=== PATIENT | female | born 1955 | race Caucasian/White ===

== ENCOUNTER 2018-04-03 22:41 | Inpatient (IN) | payer MEDICARE, OTHER ==
[~2018-04-03] VITALS: Ht 154.9 cm; Wt 72.3 kg
[2018-04-03 22:47] VITALS: Ht 154.9 cm; Wt 72.3 kg
[2018-04-03] MEDS ORDERED: JANUVIA100 M1 PO (22:59)
[2018-04-03] MEDS ORDERED: COU2 PO (22:59)
[2018-04-03] MEDS ORDERED: LEVOTHYROXINE0.05 M2 PO (23:00)
[2018-04-03] MEDS ORDERED: COZAAR25 M1 PO (23:00)
[2018-04-03] MEDS ORDERED: ATORVASTATIN CA20 M1 PO (23:00)
[2018-04-03] MEDS ORDERED: INVOKANA300 MG PO (23:00)
[2018-04-03] MEDS ORDERED: ASPIR 8181 MG PO (23:01)
[2018-04-03] MEDS ORDERED: METFORMIN HCL1000 MG PO (23:01)
[2018-04-03] MEDS ORDERED: FUROSEMIDE40 MG PO (23:01)
[2018-04-03] MEDS ORDERED: DIGOXIN0.125 M1 PO (23:02)
[2018-04-03 23:31] LABS: BASOPHIL % 0.3 % (0-2); PLATELET COUNT 265 x10^3mcL (130-400)
[2018-04-03 23:48] LABS: CALCIUM 8.6 mg/dL (8.5-10.1); CARBON DIOXIDE 27.7 mmol/L (21-32); CHLORIDE SERUM 101 mmol/L (98-107); CREATININE SERUM 0.8 mg/dL (0.6-1.0); GFR1 > 60 mL/min; GLUCOSE SERUM 262 mg/dL (74-106); POTASSIUM SERUM 3.9 mmol/L (3.5-5.1); SODIUM SERUM 137 mmol/L (136-145)
[2018-04-03 23:49] LABS: RED CELL DISTRIBUTION WIDTH 15.5 % (11.5-14.5)
[2018-04-03 23:52] LABS: ALBUMIN 3.7 g/dL (3.4-5.0); ALKALINE PHOSPHATASE 69 U/L (46-116); ALT/SGPT 29 U/L (14-59); AST/SGOT 32 U/L (15-37); BILIRUBIN TOTAL 0.4 mg/dL (0.20-1.00); CHOLESTEROL 147 mg/dL (<200); CHOLESTEROL/HDL RATIO 2.9; HDL CHOLESTEROL 51 mg/dL (40-60); LIPASE 172 IU/L (73-393); TOTAL PROTEIN, SERUM 7.1 g/dL (6.4-8.2); TRIGLYCERIDES 184 mg/dL (<150)
[2018-04-04 00:16] LABS: microscopic required? NO
[2018-04-04 00:23] LABS: FREE T4 1.39 ng/dL (0.76-1.46); FREE THYROXINE INDEX 2.8 ug/dL (1.4-4.5)
[2018-04-04 00:30] LABS: urine erythrocyte NEGATIVE (NEGATIVE)
[2018-04-04 00:38] LABS: T3 TOTAL 0.98 ng/mL
[2018-04-04 00:43] LABS: MAGNESIUM 2.3 mg/dL (1.8-2.4)
[2018-04-04 01:19] VITALS: BP 127/56
[2018-04-04 05:34] VITALS: BP 112/44
[2018-04-04 07:35] LABS: CALCIUM 8.3 mg/dL (8.5-10.1); CARBON DIOXIDE 27.3 mmol/L (21-32); CHLORIDE SERUM 101 mmol/L (98-107); CREATININE SERUM 0.6 mg/dL (0.6-1.0); GFR1 > 60 mL/min; GLUCOSE SERUM 251 mg/dL (74-106); MAGNESIUM 2.6 mg/dL (1.8-2.4); PHOSPHOROUS 3.7 mg/dL (2.5-4.9); POTASSIUM SERUM 3.5 mmol/L (3.5-5.1); SODIUM SERUM 136 mmol/L (136-145)
[2018-04-04 07:52] LABS: PLATELET COUNT 240 x10^3mcL (130-400)
[2018-04-04 08:15] LABS: BASOPHIL % 0 % (0-2); RED CELL DISTRIBUTION WIDTH 15.1 % (11.5-14.5)
[2018-04-04 09:30] VITALS: BP 130/60
[2018-04-04 13:35] VITALS: BP 101/45
[2018-04-04 16:40] VITALS: BP 120/53
[2018-04-04 20:38] VITALS: BP 103/43
[2018-04-05 05:38] VITALS: BP 104/53
[2018-04-05 05:48] LABS: BASOPHIL % 0.1 % (0-2); PLATELET COUNT 238 x10^3mcL (130-400)
[2018-04-05 05:51] LABS: RED CELL DISTRIBUTION WIDTH 15.3 % (11.5-14.5)
[2018-04-05 05:59] LABS: CALCIUM 8.4 mg/dL (8.5-10.1); CARBON DIOXIDE 26.1 mmol/L (21-32); CHLORIDE SERUM 103 mmol/L (98-107); CREATININE SERUM 0.6 mg/dL (0.6-1.0); GFR1 > 60 mL/min; GLUCOSE SERUM 283 mg/dL (74-106); MAGNESIUM 2.5 mg/dL (1.8-2.4); PHOSPHOROUS 4.4 mg/dL (2.5-4.9); POTASSIUM SERUM 4.3 mmol/L (3.5-5.1); SODIUM SERUM 140 mmol/L (136-145)
[2018-04-05 09:00] VITALS: BP 114/73
[2018-04-05] MEDS ORDERED: PROVENTIL0.09 MG/A1 INH (11:33)
[2018-04-05] MEDS ORDERED: ADV100/50 INH (11:36)
[2018-04-05] MEDS ORDERED: MONTELUKAST SOD10 M1 PO (11:39)
[2018-04-05] MEDS ORDERED: METOPROLOL SUCC25 M2 PO (11:49)
[2018-04-05] MEDS ORDERED: PREDNISONE20 MG PO (11:54)
[2018-04-05 12:54] VITALS: BP 107/40
[2018-04-05] MEDS ORDERED: CARVEDILOL12.5 M1 PO (13:10)
[2018-04-05 13:23] VITALS: BP 114/53
[2018-04-05 14:28] VITALS: BP 119/59
== END 2018-04-05 16:00 | disposition home or self-care (01) | DRG 189 ==
LOC: ED 22:41 → EDBD 22:41 → DU 04-04 00:04
PROVIDERS: Family Medicine; Specialist
DX: J96.00 Acute respiratory failure, unspecified whether with hypoxia or hypercapnia (principal); N17.0 Acute kidney failure with tubular necrosis; I50.43 Acute on chronic combined systolic (congestive) and diastolic (congestive) heart failure; J45.901 Unspecified asthma with (acute) exacerbation; E11.65 Type 2 diabetes mellitus with hyperglycemia; I11.0 Hypertensive heart disease with heart failure; I48.2 Chronic atrial fibrillation; E83.41 Hypermagnesemia; E03.9 Hypothyroidism, unspecified; E78.1 Pure hyperglyceridemia; I25.10 Atherosclerotic heart disease of native coronary artery without angina pectoris; Z79.82 Long term (current) use of aspirin; Z68.25 Body mass index [BMI] 25.0-25.9, adult; Z95.1 Presence of aortocoronary bypass graft; Z79.01 Long term (current) use of anticoagulants; Z79.84 Long term (current) use of oral hypoglycemic drugs; Z95.810 Presence of automatic (implantable) cardiac defibrillator
CPT/HCPCS: 36600; 82962; 83880; 84439; 87804; 94150; J1815; J2543; J2920; J2930; J3475; J7030; J7613; J7620; J7626; J7633; J7644; Q0092

== ENCOUNTER 2018-07-12 22:17 | Emergency (ER) | payer MEDICARE, OTHER ==
[~2018-07-12] VITALS: Ht 162.6 cm; Wt 77.1 kg
[~2018-07-12 22:17] MED LIST: ADV100/50 INH; ASPIR 8181 MG PO; ATORVASTATIN CA20 M1 PO; CARVEDILOL12.5 M1 PO; COU2 PO; COZAAR25 M1 PO; DIGOXIN0.125 M1 PO; FUROSEMIDE40 MG PO; INVOKANA300 MG PO; JANUVIA100 M1 PO; LEVOTHYROXINE0.05 M2 PO; METFORMIN HCL1000 MG PO; METOPROLOL SUCC25 M2 PO; MONTELUKAST SOD10 M1 PO; PREDNISONE20 MG PO; PROVENTIL0.09 MG/A1 INH
[2018-07-12 22:20] VITALS: Ht 162.6 cm; Wt 77.1 kg
[2018-07-12 23:51] VITALS: BP 145/60
== END 2018-07-12 23:51 | disposition home or self-care (01) ==
LOC: ED 22:17
DX: M54.5 Low back pain (principal); M17.11 Unilateral primary osteoarthritis, right knee; R05 Cough

== ENCOUNTER 2018-07-16 19:04 | Inpatient (IN) | payer MEDICARE, OTHER ==
[~2018-07-16] VITALS: Ht 152.4 cm; Wt 75.7 kg
[2018-07-16 19:08] VITALS: Ht 152.4 cm; Wt 75.7 kg
[2018-07-16 20:50] LABS: PLATELET COUNT 274 x10^3mcL (130-400)
[2018-07-16 20:55] LABS: RED CELL DISTRIBUTION WIDTH 14.7 % (11.5-14.5)
[2018-07-16 21:03] LABS: CALCIUM 8.8 mg/dL (8.5-10.1); CARBON DIOXIDE 28.7 mmol/L (21-32); CHLORIDE SERUM 97 mmol/L (98-107); CREATININE SERUM 0.7 mg/dL (0.6-1.0); GFR1 > 60 mL/min; GLUCOSE SERUM 191 mg/dL (74-106); POTASSIUM SERUM 3.7 mmol/L (3.5-5.1); SODIUM SERUM 133 mmol/L (136-145)
[2018-07-16 21:15] LABS: ALBUMIN 3.8 g/dL (3.4-5.0); ALKALINE PHOSPHATASE 90 U/L (46-116); ALT/SGPT 25 U/L (14-59); AMYLASE 30 U/L (25-115); AST/SGOT 16 U/L (15-37); BILIRUBIN TOTAL 0.7 mg/dL (0.20-1.00); HDL CHOLESTEROL 55 mg/dL (40-60); LIPASE 102 IU/L (73-393); T4(THYROXINE) 11.8 ug/dL (4.7-13.3)
[2018-07-16 21:16] LABS: CHOLESTEROL 133 mg/dL (<200); TOTAL PROTEIN, SERUM 8.3 g/dL (6.4-8.2)
[2018-07-16 21:17] LABS: BAND NEUTROPHIL 4 % (0-10); BASOPHIL 1 % (0-2); METAMYELOCTE 4 % (0-2); MONOCYTE 11 % (0-7); SEGMENTED NEUTROPHILS 68 % (37-75)
[2018-07-16 21:20] LABS: PLATELET MORPHOLOGY PLATELETS NORMAL; rbc morphology (normal/abnorm) NORMAL (NORMAL)
[2018-07-16 21:28] LABS: microscopic required? NO
[2018-07-16 21:35] LABS: urine erythrocyte NEGATIVE (NEGATIVE)
[2018-07-16 23:57] VITALS: BP 118/49
[2018-07-17 00:04] LABS: MAGNESIUM 2.4 mg/dL (1.8-2.4); PHOSPHOROUS 3.1 mg/dL (2.5-4.9)
[2018-07-17 06:01] VITALS: BP 100/52
[2018-07-17 07:26] LABS: PLATELET COUNT 246 x10^3mcL (130-400); RED CELL DISTRIBUTION WIDTH 13.9 % (11.5-14.5)
[2018-07-17 07:31] LABS: BASOPHIL % 0 % (0-2)
[2018-07-17 07:39] LABS: CALCIUM 8.5 mg/dL (8.5-10.1); CARBON DIOXIDE 24.7 mmol/L (21-32); CHLORIDE SERUM 99 mmol/L (98-107); CREATININE SERUM 0.7 mg/dL (0.6-1.0); GFR1 > 60 mL/min; GLUCOSE SERUM 214 mg/dL (74-106); PHOSPHOROUS 4.8 mg/dL (2.5-4.9); POTASSIUM SERUM 3.7 mmol/L (3.5-5.1); SODIUM SERUM 137 mmol/L (136-145)
[2018-07-17 09:49] VITALS: BP 120/43
[2018-07-17 13:56] VITALS: BP 114/61
[2018-07-17 17:32] VITALS: BP 119/47
[2018-07-17 20:55] VITALS: BP 114/50
[2018-07-18 05:48] VITALS: BP 108/42
[2018-07-18 08:28] VITALS: BP 126/59
[2018-07-18 08:32] LABS: BASOPHIL % 0.1 % (0-2); PLATELET COUNT 322 x10^3mcL (130-400)
[2018-07-18 08:37] LABS: RED CELL DISTRIBUTION WIDTH 14.8 % (11.5-14.5)
[2018-07-18 09:21] LABS: CALCIUM 8.5 mg/dL (8.5-10.1); CARBON DIOXIDE 28.9 mmol/L (21-32); CHLORIDE SERUM 99 mmol/L (98-107); CREATININE SERUM 0.6 mg/dL (0.6-1.0); GFR1 > 60 mL/min; GLUCOSE SERUM 183 mg/dL (74-106); MAGNESIUM 3.1 mg/dL (1.8-2.4); POTASSIUM SERUM 3.6 mmol/L (3.5-5.1); SODIUM SERUM 137 mmol/L (136-145)
[2018-07-18 11:53] VITALS: BP 135/53
[2018-07-18 16:25] VITALS: BP 131/49
[2018-07-18 21:00] VITALS: BP 112/58
[2018-07-19 05:35] VITALS: BP 109/46
[2018-07-19 05:51] LABS: PLATELET COUNT 330 x10^3mcL (130-400); RED CELL DISTRIBUTION WIDTH 14.5 % (11.5-14.5)
[2018-07-19 06:19] LABS: CALCIUM 8.5 mg/dL (8.5-10.1); CARBON DIOXIDE 30.6 mmol/L (21-32); CHLORIDE SERUM 100 mmol/L (98-107); CREATININE SERUM 0.7 mg/dL (0.6-1.0); GFR1 > 60 mL/min; GLUCOSE SERUM 240 mg/dL (74-106); POTASSIUM SERUM 4.5 mmol/L (3.5-5.1); SODIUM SERUM 138 mmol/L (136-145)
[2018-07-19 06:35] LABS: BASOPHIL % 0 % (0-2)
[2018-07-19 08:13] VITALS: BP 118/44
[2018-07-19 11:58] VITALS: BP 120/49
[2018-07-19 16:24] VITALS: BP 125/51
[2018-07-19 20:51] VITALS: BP 125/65
[2018-07-20 05:54] VITALS: BP 119/49
[2018-07-20 07:52] VITALS: BP 125/56
[2018-07-20] MEDS ORDERED: ZIT250 PO (09:10)
[2018-07-20 11:12] VITALS: BP 125/56
== END 2018-07-20 13:40 | disposition home or self-care (01) | DRG 291 ==
LOC: ED 19:04 → DU 22:41
PROVIDERS: Emergency Medicine; ADMIT Internal Medicine
DX: I11.0 Hypertensive heart disease with heart failure (principal); J18.9 Pneumonia, unspecified organism; J96.01 Acute respiratory failure with hypoxia; N17.0 Acute kidney failure with tubular necrosis; E87.1 Hypo-osmolality and hyponatremia; I50.43 Acute on chronic combined systolic (congestive) and diastolic (congestive) heart failure; E11.65 Type 2 diabetes mellitus with hyperglycemia; I25.10 Atherosclerotic heart disease of native coronary artery without angina pectoris; E03.9 Hypothyroidism, unspecified; Z68.30 Body mass index [BMI] 30.0-30.9, adult; Z87.891 Personal history of nicotine dependence; Z79.84 Long term (current) use of oral hypoglycemic drugs; Z95.0 Presence of cardiac pacemaker; Z79.01 Long term (current) use of anticoagulants; Z79.82 Long term (current) use of aspirin
CPT/HCPCS: 36600; 82962; 83880; 87804; 94150; 97110-GP; 97116-GP; 97530-GP; J0696; J1815; J1940; J2920; J2930; J3475; J3535; J7613; J7620; J7626; J7644; Q0092

== ENCOUNTER 2019-02-10 14:15 | Emergency (ER) | payer MEDICARE, OTHER ==
[~2019-02-10] VITALS: Ht 157.5 cm; Wt 69.4 kg
[~2019-02-10 14:15] MED LIST changes: +ZIT250 PO
[2019-02-10 14:20] VITALS: Ht 157.5 cm; Wt 69.4 kg
[2019-02-10 15:08] LABS: BASOPHIL % 0.3 % (0-2); PLATELET COUNT 262 x10^3mcL (130-400); RED CELL DISTRIBUTION WIDTH 16.1 % (11.5-14.5)
[2019-02-10 15:13] LABS: CALCIUM 8.3 mg/dL (8.5-10.1); CARBON DIOXIDE 31.8 mmol/L (21-32); CHLORIDE SERUM 97 mmol/L (98-107); CREATININE SERUM 0.8 mg/dL (0.6-1.0); GFR1 > 60 mL/min; GLUCOSE SERUM 216 mg/dL (74-106); POTASSIUM SERUM 3.7 mmol/L (3.5-5.1); SODIUM SERUM 136 mmol/L (136-145)
[2019-02-10 15:21] LABS: ALBUMIN 3.8 g/dL (3.4-5.0); ALKALINE PHOSPHATASE 76 U/L (46-116); ALT/SGPT 20 U/L (14-59); AST/SGOT 11 U/L (15-37); BILIRUBIN TOTAL 0.62 mg/dL (0.20-1.00); CHOLESTEROL 158 mg/dL (<200); HDL CHOLESTEROL 49 mg/dL (40-60); TOTAL PROTEIN, SERUM 7.4 g/dL (6.4-8.2)
[2019-02-10 16:03] LABS: microscopic required? NO
[2019-02-10 16:45] LABS: UA SPECIFIC GRAVITY <=1.005 (1.005-1.035); urine erythrocyte NEGATIVE (NEGATIVE)
[2019-02-10 17:26] VITALS: BP 119/38
== END 2019-02-10 17:16 | disposition home or self-care (01) ==
LOC: ED 14:15
PROVIDERS: Emergency Medicine
DX: J45.901 Unspecified asthma with (acute) exacerbation (principal); M54.6 Pain in thoracic spine; I11.0 Hypertensive heart disease with heart failure; I50.9 Heart failure, unspecified; E11.9 Type 2 diabetes mellitus without complications; J44.9 Chronic obstructive pulmonary disease, unspecified; E03.9 Hypothyroidism, unspecified; F41.9 Anxiety disorder, unspecified; Z88.1 Allergy status to other antibiotic agents
CPT/HCPCS: 83880; J2930; J7030; J7613; J7644

== ENCOUNTER 2019-06-06 12:09 | Emergency (ER) | payer MEDICARE, OTHER ==
[~2019-06-06] VITALS: Ht 152.4 cm; Wt 74.4 kg
[2019-06-06 12:49] VITALS: Ht 152.4 cm; Wt 74.4 kg
[2019-06-06 13:35] LABS: microscopic required? NO
[2019-06-06 13:41] LABS: BASOPHIL % 0.2 % (0-2); PLATELET COUNT 258 x10^3mcL (130-400)
[2019-06-06 13:43] LABS: RED CELL DISTRIBUTION WIDTH 15.2 % (11.5-14.5)
[2019-06-06 13:52] LABS: CALCIUM 8.5 mg/dL (8.5-10.1); CARBON DIOXIDE 31.1 mmol/L (21-32); CHLORIDE SERUM 97 mmol/L (98-107); CREATININE SERUM 0.9 mg/dL (0.6-1.0); GFR1 > 60 mL/min; POTASSIUM SERUM 4.2 mmol/L (3.5-5.1); SODIUM SERUM 133 mmol/L (136-145)
[2019-06-06 14:04] LABS: ALBUMIN 3.9 g/dL (3.4-5.0); ALKALINE PHOSPHATASE 86 U/L (46-116); ALT/SGPT 23 U/L (14-59); AST/SGOT 19 U/L (15-37); BILIRUBIN TOTAL 0.82 mg/dL (0.20-1.00); CHOLESTEROL 159 mg/dL (<200); HDL CHOLESTEROL 59 mg/dL (40-60); LIPASE 146 IU/L (73-393); T4(THYROXINE) 9.7 ug/dL (4.7-13.3)
[2019-06-06 14:12] LABS: urine erythrocyte NEGATIVE (NEGATIVE)
[2019-06-06 14:23] LABS: GLUCOSE SERUM 219 mg/dL (74-106)
[2019-06-06 14:26] LABS: AMPHETAMINE QUAL UR NONE DETECTED (See below)
[2019-06-06 16:20] VITALS: BP 117/57
== END 2019-06-06 16:20 | disposition home or self-care (01) ==
LOC: ED 12:09
PROVIDERS: Emergency Medicine
DX: J44.1 Chronic obstructive pulmonary disease with (acute) exacerbation (principal); I48.91 Unspecified atrial fibrillation; I11.9 Hypertensive heart disease without heart failure; E03.9 Hypothyroidism, unspecified; E78.00 Pure hypercholesterolemia, unspecified; E66.9 Obesity, unspecified; Z95.2 Presence of prosthetic heart valve; Z95.0 Presence of cardiac pacemaker; Z68.32 Body mass index [BMI] 32.0-32.9, adult; Z87.891 Personal history of nicotine dependence; Z90.49 Acquired absence of other specified parts of digestive tract; Z88.1 Allergy status to other antibiotic agents
CPT/HCPCS: 36600; 83880; 87804; J0696; J2930; J7060; J7613; Q0092